=== PATIENT | female | born 1975 | race Caucasian/White ===

== ENCOUNTER 2024-09-23 14:11 | Outpatient (CLI) | payer MEDICARE, MEDICAID, SELFPAY | END 2024-09-23 14:12 | disposition home or self-care (01) | PROVIDERS: PCP Nurse Practitioner Family; Visit Provider Nurse Practitioner Family | DX: M06.9 Rheumatoid arthritis, unspecified (principal) | CPT/HCPCS: 85025; 85651; 86140 ==